=== PATIENT | female | born 2000 | race Hispanic/Latino ===

== ENCOUNTER 2021-11-17 05:19 | Emergency (ER) | payer OTHER, SELFPAY | END 2021-11-17 08:10 | disposition home or self-care (01) | LOC: ERS 05:19 | DX: S05.12XA Contusion of eyeball and orbital tissues, left eye, initial encounter (principal); Y04.8XXA Assault by other bodily force, initial encounter; F17.290 Nicotine dependence, other tobacco product, uncomplicated | CPT/HCPCS: 70486 ==